=== PATIENT | male | born 1960 | race African-American/Black ===

== ENCOUNTER 2017-09-22 10:43 | Inpatient (IN) | payer MEDICAID, OTHER ==
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
[2017-09-22 13:17] LABS: Amphetamine Screen,Urine Not Detected (NotDetected); Barbiturate Screen,Urine Not Detected (NotDetected); Benzodiazepines Screen,Urine Not Detected (NotDetected); Cocaine Screen,Urine Not Detected (NotDetected); Methadone Screen, Urine Not Detected (NotDetected); Opiate Screen,Urine Not Detected (NotDetected); Oxycodone Screen, Urine Not Detected (NotDetected); Phencyclidine Screen,Urine Not Detected (NotDetected); Tricyclic Antidepressant,Urine Not Detected (NotDetected); Urn Cannabinoid Scrn Not Detected (NotDetected)
[2017-09-22] MEDS ORDERED: MAGNESIUM HYDROXIDE 2,400 MG/10 ML CUP PO PRN (13:59)
[2017-09-22] MEDS ORDERED: ACETAMINOPHEN TAB 325 MG TAB PO PRN (13:59)
[2017-09-22] MEDS ORDERED: MAG HYDROX/AL HYDROX/SIMETH 30 ML CUP PO PRN (13:59)
[2017-09-22] MEDS ORDERED: ZIPRASIDONE 20 MG VIAL IM PRN (13:59)
[2017-09-22 14:08] LABS: Appearance,Urine Clear (Clear); Bilirubin,Urine Negative (Negative); Blood,Urine Negative (Negative); Color,Urine Yellow; Glucose,Urine (UA) Negative (Negative); Ketones,Urine Negative (Negative); Leukocyte Esterase,Urine Negative (Negative); Nitrite,Urine Negative (Negative); PH, Urine 5.5 (5.0-8.0); Protein,Urine Trace (Negative); Urobilinogen,Urine <2.0 mg/dL (<2.0)
[2017-09-22 14:54] VITALS: BMI 28.7
[2017-09-22] MEDS: NICOTINE 21MG/24HR PATCH TRANSDERM SCH (15:30)
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
--- NOTE | 2017-09-22 17:20 | P.CONS ---
History of Present Illness - Reason for Consult Medical clearance - History of Present Illness Patient is a very 57 pleasant gentleman is admitted to psychiatric floor for his suicidal thoughts. Patient is clinically doing well his only issues being some claudication pain upon questioning patient has loss of hair in the right leg and the couple pressure ulcers in both the foot. Patient has crowding of all his toes in bilateral fourth leading to some pressure ulcers which are presently not infected. Patient denied any fever chills nausea vomiting patient is a smoker smokes about half pack per day Review of Systems REVIEW OF SYSTEMS: CONSTITUTIONAL: No fever, no malaise, no fatigue. HEENT: No recent visual problems or hearing problems. Denied any sore throat. CARDIOVASCULAR: No chest pain, orthopnea, PND, no palpitations, no syncope. PULMONARY: No shortness of breath, no cough, no hemoptysis. GASTROINTESTINAL: No diarrhea, no nausea, no vomiting, no abdominal pain. Normoactive bowel sounds. NEUROLOGICAL: No headaches, no weakness, no numbness. HEMATOLOGICAL: Denies any bleeding or petechiae. GENITOURINARY: Denies any burning micturition, frequency, or urgency. MUSCULOSKELETAL/RHEUMATOLOGICAL: Denies any joint pain, swelling, or any muscle pain. ENDOCRINE: Denies any polyuria or polydipsia. The rest of the 14-point review of systems is negative. Past Medical History Past Medical History: Hyperlipidemia, Hypertension History of Any Multi-Drug Resistant Organisms: None Reported Past Surgical History: Hernia Repair Smoking Status: Current every day smoker Medications and Allergies Home Medications Medication Instructions Recorded Confirmed Type No Known Home Medications [No 09/22/17 09/22/17 History Known Home Medications] Allergies Allergy/AdvReac Type Severity Reaction Status Date / Time No Known Allergies Allergy Verified 09/22/17 11:24 Physical Exam Vitals: Vital Signs Temp Pulse Pulse Resp BP BP Pulse Ox 09/22/17 14:36 77 20 147/94 09/22/17 14:07 98.6 F 66 18 148/78 98 09/22/17 11:00 98.4 F 65 16 144/96 98 Intake and Output 09/22/17 09/22/17 09/22/17 06:59 14:59 22:59 Other: Weight 95.963 kg PHYSICAL EXAMINATION: GENERAL: The patient is alert and oriented x3, not in any acute distress. Well developed, well nourished. HEENT: Pupils are round and equally reacting to light. EOMI. No scleral icterus. No conjunctival pallor. Normocephalic, atraumatic. No pharyngeal erythema. No thyromegaly. CARDIOVASCULAR: S1 and S2 present. No murmurs, rubs, or gallops. PULMONARY: Chest is clear to auscultation, no wheezing or crackles. ABDOMEN: Soft, nontender, nondistended, normoactive bowel sounds. No palpable organomegaly. MUSCULOSKELETAL: No joint swelling or deformity. EXTREMITIES: No cyanosis, clubbing, or pedal edema. NEUROLOGICAL: Gross neurological examination did not reveal any focal deficits. SKIN: Press fresher lesions on the plantar aspect of both the foot laterally on the plantar aspect around the fourth and fifth metatarsal areas in both foot area doesn't appear to be infected patient has crowding of fingers loss of hair in the right leg Results Labs: Abnormal Lab Results - Last 24 Hours (Table) 09/22/17 Range/Units 12:17 Urine Protein Trace H (Negative) Assessment and Plan Plan: -Possible peripheral vascular disease patient will be started on Plavix and a statin and a lipid panel will be obtained nicotine cessation counseling was provided.--Bilateral plantar pressure ulcers which doesn't appear to be infected patient is to follow with the creatinine as an outpatient. I recommended soft gauze under the foot via before wearing boots to reduce the pressure on the ulcerated area. -Nicotine abuse: Counseling was provided -Suicidal ideation: Management as per primary service
[2017-09-22] MEDS: OXcarbazepine 300 MG TAB PO SCH (20:25)
[2017-09-22] MEDS ORDERED: ATORVASTATIN 20 MG TAB PO SCH (21:00)
[2017-09-22] MEDS ORDERED: QUEtiapine 100 MG TAB PO SCH (21:00)
[2017-09-23] MEDS ORDERED: CLOPIDOGREL 75 MG TAB PO SCH (09:00)
[2017-09-23 09:42] LABS: Basophils % (A) 0 %; Eosinophils # (A) 0.6 k/uL (0-0.7); Eosinophils % (A) 7 %; HCT 45.6 % (39.0-53.0); HGB 15.2 gm/dL (13.0-17.5); Lymphocytes # (A) 2.3 k/uL (1.0-4.8); Lymphocytes % (A) 30 %; MCH 28.6 pg (25.0-35.0); MCHC 33.4 g/dL (31.0-37.0); MCV 85.8 fL (80.0-100.0); Mean Platelet Volume 7.7; Monocytes # (A) 0.3 k/uL (0-1.0); Monocytes % (A) 4 %; Neutrophils # (A) 4.5 k/uL (1.3-7.7); Neutrophils % (A) 58 %; Platelet Count 287 k/uL (150-450); RBC 5.32 m/uL (4.30-5.90); RDW 12.4 % (11.5-15.5); WBC 7.8 k/uL (3.8-10.6)
[2017-09-23 09:50] LABS: Albumin 4.3 g/dL (3.5-5.0); Calcium 10.1 mg/dL (8.4-10.2); Total Bilirubin 0.7 mg/dL (0.2-1.3); Total Protein 7.2 g/dL (6.3-8.2)
[2017-09-23] MEDS: NICOTINE 21MG/24HR PATCH TRANSDERM SCH (10:22)
[2017-09-23] MEDS: OXcarbazepine 300 MG TAB PO SCH ×2 (10:22→21:00)
--- NOTE | 2017-09-23 11:26 | P.PN ---
Progress Note - Text Progress Note Date: 09/23/17 Patient was seen for follow-up examination. He has been taking Seroquel and Trileptal without any adverse effect. He said he he did not get too sleepy last night but he slept enough. He agreed to increase the dose of Seroquel to 200 mg at at bedtime tonight. He has been going to the groups and socializing with patient's staff and flirts with women. Has not been violent or abusive. He was started on Plavix and Lipitor by the doctor who had given him physical examination. His LDL is only 124 which is borderline high and patient does not have any history of stroke, AK, PE or DVT. He has some mild varicose veins of the legs. He has deformed toes, bunions, calluses/corns of feet. These would require care by a advertising sales assistant and use of anticoagulants can be dangerous if he is in an accident. Since I do not see any valid indication for the use of Plavix, I will discontinue it. Since patient agreed to go on a diet and monitor his lipid level and will discontinue Lipitor also. This is a black ambulatory male with adequate hygiene. He is cooperative. He still gets hyperactive. His speech is spontaneous pressured with flight of ideas. But he is not as loud as he was and is able to focus on topic better today. His mood is cheerful and affect is increased in intensity. He denies hallucinations. He continues to report of suicide and homicide thoughts but he does not have any plans. He continues to be grandiose. He is well oriented with adequate memory. His insight and judgment seem to be improving. Plan: Discontinue Plavix and Lipitor, change Seroquel to 200 mg at bedtime and continue Trileptal, groups and other therapies.
[2017-09-23] MEDS: QUEtiapine 200 MG TAB PO SCH (21:00)
[2017-09-24] MEDS: NICOTINE 21MG/24HR PATCH TRANSDERM SCH (08:32)
[2017-09-24] MEDS: OXcarbazepine 300 MG TAB PO SCH ×2 (08:34→20:12)
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
[2017-09-24] MEDS: QUEtiapine 200 MG TAB PO SCH (20:12)
[2017-09-25] MEDS: NICOTINE 21MG/24HR PATCH TRANSDERM SCH (08:58)
[2017-09-25] MEDS: OXcarbazepine 300 MG TAB PO SCH ×2 (08:58→21:43)
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
[2017-09-25] MEDS: QUEtiapine 200 MG TAB PO SCH (21:43)
[2017-09-26 06:55] VITALS: BP 134/71; PULSE 64; RESP 16; TEMP 98
[2017-09-26] MEDS: NICOTINE 21MG/24HR PATCH TRANSDERM SCH (09:15)
[2017-09-26] MEDS: OXcarbazepine 300 MG TAB PO SCH (09:15)
--- NOTE | 2017-09-26 09:24 | P.DS ---
Providers Date of admission: 09/22/17 13:58 Expected date of discharge: 09/26/17 Attending physician: Ton Amador Consults: 09/22/17 13:59 Consult Physician Routine Consulting Provider: Andrews Knott Consult Reason/Comments: follow up H & P Do you want consulting provider notified?: Yes Primary care physician: [facility] Course: Patient had his psychiatric evaluation, physical examination and psychosocial evaluation. After psychiatric examination he was started on Seroquel 100 mg at bedtime and Trileptal 300 mg twice a day for mood stabilization. He tolerated these medicines well without any adverse effects. Next day his Seroquel was increased to 200 mg at bedtime. He tolerated this dose well without adverse effects. His sleep started to get better and he slept well on Tuesday and Tuesday. He was also able to focus better, learn better coping skills throughout attending groups and has been able to come up with mature coping skills to handle his frustration. In view of all these it was agreed to discharge him. Patient was seen by the physician who provided him with physical examination who had started him on Plavix and Lipitor. This where discontinued since he did not have any AL, strokes, DVT or pulmonary embolism etc. in the past. His Lipitor was canceled since his LDL was only borderline high and he had not tried low-fat diet for which he agreed and go back on lipid- lowering drugs if his lipids are still high after going on diet for about 3 months. Condition on discharge: This is a tall ambulatory black male with good hygiene. He does not show any psychomotor agitation or retardation. His speech is spontaneous relevant and goal-directed. But he tends to be over inclusive. His mood is cheerful and affect is appropriate. He denies hallucinations delusional thinking suicidal and homicidal ideas. He said he wants to return to work on Tuesday the , talk to the [employer] people or other persons in employment area about him being attacked at work. He is well oriented with good memory concentration general fund of knowledge etc. His insight and judgment have improved quite a bit. Diagnosis on discharge: Bipolar 1 disorder most recent episode manic with psychotic features F 31.2. Antisocial personality disorder F 60.2. NKDA Hammertoe deformities of toes, several calluses and corns on the sole of feet. Patient was advised and agreed to take his medications as prescribed, not to drink alcohol or use drugs, to learn better coping skills through therapy, not to drive or operate missionary if he feels sleepy, to call his psychiatrist or therapist if he gets any thoughts of hurting himself or others and if he cannot get hold of them to go to nearest ER. Plan - Discharge Summary New Discharge Prescriptions: New OXcarbazepine [Trileptal] 300 mg PO BID 30 Days #60 tab QUEtiapine [SEROquel] 200 mg PO HS 30 Days #30 tab Discharge Medication List OXcarbazepine [Trileptal] 300 mg PO BID 30 Days #60 tab 09/26/17 [Rx] QUEtiapine [SEROquel] 200 mg PO HS 30 Days #30 tab 09/26/17 [Rx] Follow up Appointment(s)/Referral(s): Tone Casillas MD [STAFF PHYSICIAN] - 1 Week
== END 2017-09-26 14:29 | disposition home or self-care (01) | DRG 885 ==
LOC: EC 10:43 → 3MHU 13:58
PROVIDERS: ADMIT Psychiatry & Neurology Psychiatry; ATTEND Psychiatry & Neurology Psychiatry
DX: F31.2 Bipolar disorder, current episode manic severe with psychotic features (principal); R45.850 Homicidal ideations; R45.851 Suicidal ideations; E78.5 Hyperlipidemia, unspecified; F60.2 Antisocial personality disorder; I10 Essential (primary) hypertension; F17.200 Nicotine dependence, unspecified, uncomplicated; I70.245 Atherosclerosis of native arteries of left leg with ulceration of other part of foot; I70.235 Atherosclerosis of native arteries of right leg with ulceration of other part of foot; I83.90 Asymptomatic varicose veins of unspecified lower extremity; L84 Corns and callosities; M20.40 Other hammer toe(s) (acquired), unspecified foot; M21.619 Bunion of unspecified foot; Z80.9 Family history of malignant neoplasm, unspecified; Z81.3 Family history of other psychoactive substance abuse and dependence
CPT/HCPCS: 80053; 80061; 80306; 81003; 82075; 84439; 84443; 85025; 99285

== ENCOUNTER → 2018-03-15 | Day surgery (SDC) | payer OTHER ==
[2018-03-14 08:52] VITALS: BMI 32.1
[~2018-03-15] MED LIST: LIDOCAINE 1% INJ 10MG/ML (20 ML MDV) ONE; MIDAZOLAM 2 MG/2 ML VIAL IVP ONE; MIDAZOLAM 2 MG/2 ML VIAL ONE; PROPOFOL 10 MG/ML 20 ML VIAL IV ONE; SODIUM CHLORIDE 0.9% 250 ML IV ONE; fentaNYL (PF) 50 MCG/ML 2 ML AMP ONE
[2018-03-15 11:48] VITALS: TEMP 98
[2018-03-15] MEDS: BENZOCAINE SPRAY 1 CAN MUCOUS MEM ONE ×2 (13:05→13:11)
[2018-03-15] MEDS: MIDAZOLAM 2 MG/2 ML VIAL IVP ONE ×2 (13:11→13:12)
[2018-03-15] MEDS: fentaNYL (PF) 50 MCG/ML 2 ML AMP IVP ONE ×2 (13:13→13:16)
[2018-03-15 14:13] VITALS: RESP 16
--- NOTE | 2018-03-15 15:12 | ECHOT ---
TRANSESOPHAGEAL ECHOCARDIOGRAM DATE OF SERVICE: March 15, 2018 PERFORMING PHYSICIAN: Arian Orantes MD, motor vehicle compliance analyst. PROCEDURE PERFORMED: Transesophageal echocardiogram. INDICATION: This is a pleasant 58-year-old gentleman with hypertension and dyslipidemia who was admitted recently to the hospital with a stroke. The transesophageal echocardiogram is to rule out any cardiac source of embolization. COMPLICATION: None. SEDATION: Deep sedation was performed using propofol with PLATE GRAINER in the room. PROCEDURE DESCRIPTION: After obtaining an informed consent, the patient was brought to the transesophageal echocardiogram suite. The pulse oximetry and heart rate monitors were attached to the patient. The patient was turned into left lateral position. The throat was sprayed using lidocaine. I attempted intubating the patient after I gave 4 mg of Versed and 50 mcg of fentanyl, but the patient keeps gagging and I had to withdraw the probe out. Because of that, I called for general anesthesia. After that, the probe was advanced to the mid esophagus where 2D echocardiogram images as well as color Doppler images of various cardiac structure were obtained. Particular attention was made to the left atrial appendage. Particular attention also was made to the interatrial septum. The procedure was completed without any complication. FINDINGS: The left ventricular dimension and systolic function appeared to be within normal limits. The ejection fraction appeared to be around 60%. The right ventricle is of normal size and function. The left atrium and right atrium dimension appear to be within normal limits. Platelet left atrial appendage appeared to be free from any thrombus. The interatrial septum appeared to be hyperdynamic with evidence of patent bond ovale and [id number] shunt was identified on multiple contrast study. The aortic valve is trileaflet valve without stenosis or regurgitation. The mitral valve seems to be mildly thickened with mild MR. Normal tricuspid valve and pulmonic valve. CONCLUSION: 1. 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 2. Intact left atrial appendage without any evidence of thrombus. 3. Normal left ventricular dimension and systolic function. 4. Normal cardiac chamber sizes. 5. Normal intracardiac valves. 6. No evidence of pericardial effusion. 7. Normal aortic root dimension. MMODL / IJN: [id number] /
[2018-03-15 16:10] VITALS: PULSE 70
[2018-03-15 16:15] VITALS: BP 156/90
== END ==
LOC: CATHCVL 11:22
PROVIDERS: ATTEND Internal Medicine Interventional Cardiology
DX: I69.328 Other speech and language deficits following cerebral infarction (principal); E78.5 Hyperlipidemia, unspecified; Z82.49 Family history of ischemic heart disease and other diseases of the circulatory system; F17.210 Nicotine dependence, cigarettes, uncomplicated; I49.3 Ventricular premature depolarization; Z79.02 Long term (current) use of antithrombotics/antiplatelets; Z79.82 Long term (current) use of aspirin; Z79.899 Other long term (current) drug therapy; I10 Essential (primary) hypertension
CPT/HCPCS: 93312; 93320; 93325; J2250; J2001; J3010; J2704

== ENCOUNTER 2018-06-15 20:30 | Inpatient (IN) | payer MEDICAID, OTHER ==
--- NOTE | 2018-06-15 22:52 | ED ---
Psych HPI - General Chief Complaint: Psychiatric Symptoms Stated Complaint: homicidal Time Seen by Provider: 06/15/18 21:04 Source: patient, RN notes reviewed Mode of arrival: ambulatory - History of Present Illness Initial Comments: This is a 58-year-old male with a history of bipolar disorder who presents with complaints of feeling depressed and suicidal he also stated he wanted to hurt somebody earlier he does have a history of a remote stroke he's been out of work for a while and has not been able to his bills apparently he and his have gotten into an argument he is allowed home at this time she's been homeless for the past several days. He did spend 2 days of the local mission. He had thoughts of running out in front of a car or jumping off a bridge [place]. No other complaints at this time no drugs or alcohol reported. MD Complaint: suicidal ideation, feels depressed - Related Data Home Medications Medication Instructions Recorded Confirmed Aspirin 325 mg PO DAILY 03/14/18 06/15/18 Clopidogrel [Plavix] 75 mg PO DAILY 03/14/18 06/15/18 Famotidine [Pepcid] 20 mg PO DAILY 03/14/18 06/15/18 Atorvastatin [Lipitor] 20 mg PO HS 06/15/18 06/15/18 Nicotine 14Mg/24Hr Patch [Habitrol 1 patch TRANSDERM DAILY 06/15/18 06/15/18 14Mg/24Hr Patch] amLODIPine [Norvasc] 10 mg PO DAILY 06/15/18 06/15/18 Previous Rx's Medication Instructions Recorded OXcarbazepine [Trileptal] 300 mg PO BID 30 Days #60 tab 09/26/17 QUEtiapine [SEROquel] 200 mg PO HS 30 Days #30 tab 09/26/17 Allergies Allergy/AdvReac Type Severity Reaction Status Date / Time No Known Allergies Allergy Verified 06/16/18 06:25 Review of Systems ROS Statement: Those systems with pertinent positive or pertinent negative responses have been documented in the HPI. ROS Other: All systems not noted in ROS Statement are negative. Past Medical History Past Medical History: CVA/TIA, Hyperlipidemia, Hypertension Additional Past Medical History / Comment(s): STROKE 01/04/18, CHRONIC BRONCHITIS , History of Any Multi-Drug Resistant Organisms: None Reported Past Surgical History: Hernia Repair Past Anesthesia/Blood Transfusion Reactions: No Reported Reaction Past Psychological History: Anxiety, Bipolar, Depression Smoking Status: Current every day smoker - Past Family History Father Family Medical History: Cancer General Exam - General Exam Comments Initial Comments: This is a well-developed well-nourished awake alert oriented 3 male Limitations: no limitations General appearance: alert, in no apparent distress Head exam: Present: atraumatic, normocephalic, normal inspection Eye exam: Present: normal appearance, PERRL, EOMI. Absent: scleral icterus, conjunctival injection, periorbital swelling ENT exam: Present: normal exam, mucous membranes moist Neck exam: Present: normal inspection. Absent: tenderness, meningismus, lymphadenopathy Respiratory exam: Present: normal lung sounds bilaterally. Absent: respiratory distress, wheezes, rales, rhonchi, stridor Cardiovascular Exam: Present: regular rate, normal rhythm, normal heart sounds. Absent: systolic murmur, diastolic murmur, rubs, gallop, clicks GI/Abdominal exam: Present: soft, normal bowel sounds. Absent: distended, tenderness, guarding, rebound, rigid Extremities exam: Present: normal inspection, full ROM, normal capillary refill. Absent: tenderness, pedal edema, joint swelling, calf tenderness Back exam: Present: normal inspection Neurological exam: Present: alert, oriented X3, CN II-XII intact Psychiatric exam: Present: depressed, suicidal ideation Skin exam: Present: warm, dry, intact, normal color. Absent: rash Course Vital Signs 06/15/18 06/16/18 20:44 05:13 Temperature 99.1 F Pulse Rate 82 69 Respiratory 16 16 Rate Blood Pressure 159/99 141/83 O2 Sat by Pulse 97 97 Oximetry - Reevaluation(s) Reevaluation #1: 06/16/18 00:13 Psychiatric evaluation is pending patient's care will be endorsed to Dr. Maciel at our shift change Medical Decision Making - Lab Data Result diagrams: 06/16/18 08:50 06/16/18 08:50 Lab Results 06/15/18 Range/Units 23:10 Urine Opiates Screen Not Detected (NotDetected) Ur Oxycodone Screen Not Detected (NotDetected) Urine Methadone Screen Not Detected (NotDetected) Ur Propoxyphene Screen Not Detected (NotDetected) Ur Barbiturates Screen Not Detected (NotDetected) U Tricyclic Antidepress Not Detected (NotDetected) Ur Phencyclidine Scrn Not Detected (NotDetected) Ur Amphetamines Screen Not Detected (NotDetected) U Methamphetamines Scrn Not Detected (NotDetected) U Benzodiazepines Scrn Not Detected (NotDetected) Urine Cocaine Screen Not Detected (NotDetected) U Marijuana (THC) Screen Not Detected (NotDetected) Disposition Clinical Impression: Depression, Suicidal ideation Disposition: TRANSFER TO PSYCH HOSP/UNIT
[2018-06-15 23:49] LABS: Amphetamine Screen,Urine Not Detected (NotDetected); Barbiturate Screen,Urine Not Detected (NotDetected); Benzodiazepines Screen,Urine Not Detected (NotDetected); Cocaine Screen,Urine Not Detected (NotDetected); Methadone Screen, Urine Not Detected (NotDetected); Opiate Screen,Urine Not Detected (NotDetected); Oxycodone Screen, Urine Not Detected (NotDetected); Phencyclidine Screen,Urine Not Detected (NotDetected); Tricyclic Antidepressant,Urine Not Detected (NotDetected); Urn Cannabinoid Scrn Not Detected (NotDetected)
[2018-06-16] MEDS ORDERED: LORazepam 1 MG TAB PO PRN (05:55)
[2018-06-16] MEDS ORDERED: MAGNESIUM HYDROXIDE 2,400 MG/10 ML CUP PO PRN (05:55)
[2018-06-16] MEDS ORDERED: ZIPRASIDONE 20 MG VIAL IM PRN (05:55)
[2018-06-16] MEDS ORDERED: MAG HYDROX/AL HYDROX/SIMETH 30 ML CUP PO PRN (05:55)
[2018-06-16] MEDS ORDERED: ACETAMINOPHEN TAB 325 MG TAB PO PRN (05:55)
[2018-06-16 09:11] LABS: Basophils # (A) 0.1 k/uL (0-0.2); Basophils % (A) 1 %; Eosinophils # (A) 0.4 k/uL (0-0.7); Eosinophils % (A) 5 %; HCT 45.5 % (39.0-53.0); HGB 15.1 gm/dL (13.0-17.5); Lymphocytes # (A) 2.4 k/uL (1.0-4.8); Lymphocytes % (A) 34 %; MCH 29.4 pg (25.0-35.0); MCHC 33.2 g/dL (31.0-37.0); MCV 88.5 fL (80.0-100.0); Monocytes # (A) 0.5 k/uL (0-1.0); Monocytes % (A) 7 %; Neutrophils # (A) 3.6 k/uL (1.3-7.7); Neutrophils % (A) 50 %; Platelet Count 217 k/uL (150-450); RBC 5.14 m/uL (4.30-5.90); RDW 12.9 % (11.5-15.5); WBC 7.3 k/uL (3.8-10.6)
[2018-06-16 09:21] LABS: Albumin 3.9 g/dL (3.5-5.0); Bilirubin, Delta 0.1 mg/dL (0.0-0.2); Bilirubin,Unconjugated 0.6 mg/dL (0.0-1.1); Calcium 9.7 mg/dL (8.4-10.2); Potassium 4.2 mmol/L (3.5-5.1); Total Bilirubin 0.7 mg/dL (0.2-1.3); Total Protein 6.7 g/dL (6.3-8.2)
--- NOTE | 2018-06-16 09:30 | P.HP ---
Psychiatric H&P - . History & Physical: Allergies Allergy/AdvReac Type Severity Reaction Status Date / Time No Known Allergies Allergy Verified 06/16/18 06:25 Vital Signs Temp 98.1 F 06/16/18 06:37 Pulse 68 06/16/18 06:37 Resp 20 06/16/18 06:37 BP 154/87 06/16/18 06:37 Pulse Ox 97 06/16/18 05:13 Intake & Output 06/15/18 06/16/18 06/16/18 18:59 06:59 18:59 Weight 100.698 kg Laboratory Last Values Urine Opiates Screen Not Detected (NotDetected) 06/15/18 23:10 Ur Oxycodone Screen Not Detected (NotDetected) 06/15/18 23:10 Urine Methadone Screen Not Detected (NotDetected) 06/15/18 23:10 Ur Propoxyphene Screen Not Detected (NotDetected) 06/15/18 23:10 Ur Barbiturates Screen Not Detected (NotDetected) 06/15/18 23:10 U Tricyclic Antidepress Not Detected (NotDetected) 06/15/18 23:10 Ur Phencyclidine Scrn Not Detected (NotDetected) 06/15/18 23:10 Ur Amphetamines Screen Not Detected (NotDetected) 06/15/18 23:10 U Methamphetamines Scrn Not Detected (NotDetected) 06/15/18 23:10 U Benzodiazepines Scrn Not Detected (NotDetected) 06/15/18 23:10 Urine Cocaine Screen Not Detected (NotDetected) 06/15/18 23:10 U Marijuana (THC) Screen Not Detected (NotDetected) 06/15/18 23:10 06/16/18 09:19 IDENTIFYING DATA: This patient is a 58-year-old -Tog[place] male who was admitted to the mental health unit through the emergency room with the report of suicidal ideation. HPI: The patient states that his life has changed ever since he had his stroke in December. He reports that he has a loss of independence and a loss of income. He states that his girlfriend has attempted to file a PPO against him and he is not able to return home. He has been residing with friends or in the alf. Due to all of the stressors he has become overwhelmed and had thoughts of jumping in front of a car or jumping in the river as a means of committing suicide. He reports his mood is "terrible" and feels depressed and hopeless. He endorses a generalized sense of anger he states he has homicidal thoughts but reports having no specific victim in mind. He states he has not slept in 4- 5 days his energy is low appetite has been poor. He endorses a history of manic episodes and states he was manic during his last admission here in September. He states he will go through times where he has less sleep and increased energy racing thoughts and pressured speech etc. He is reporting no auditory or visual hallucinations he is endorsing no specific delusions he indicates that he feels safe here. He has anxiety symptoms related to his current stressors. PAST PSYCHIATRIC HISTORY: This is reportedly his second inpatient psychiatric hospitalization the first was in September of this year under the care of Dr. Amador. He was placed on Trileptal 300 mg twice daily Seroquel 200 mg at bedtime. He states he has been off his medication for an extended period of time. He did not follow-up with mental health services upon discharge. He believes he has worked with a therapist at [facility] [place] in the past. He endorses no history of suicide attempts. PMH: History of stroke in December where he experienced an expressive aphasia he noted no paresis/paralysis he reports no other medical comorbidities although he may have hyperlipidemia and hypertension ALLERGIES: NO KNOWN DRUG ALLERGIES MEDICATIONS: Norvasc, Lipitor, Plavix, aspirin CHEMICAL DEPENDENCY HISTORY: He has a long history of alcohol use disorder and cocaine use disorder, he states on Tuesday or Tuesday he used alcohol and had $ 40 worth of crack he has been in residential treatment at least 4 times in the past FAMILY PSYCHIATRIC HISTORY: None reported, no history of suicides in the family FAMILY CHEMICAL DEPENDENCY HISTORY: Unknown SOCIAL HISTORY: The patient is 68 years old he finds himself currently homeless. He has a girlfriend of 3 years but states the relationship is "terrible right now". He states his girlfriend filed a petition for a PPO against him and it was denied and there has been a request for hearing. He states he was not aggressive towards her and feels that this is a false allegation. Prior to his stroke the patient was employed as a vendor representatives and had been at that job for approximately 2-1/2 years. He went as far as 10th grade in school and then later earned a GED. He was in the [employer] reserve for a brief period of time and was discharged under general conditions. He has 3 children. No reported abuse history, in terms of legal history he was arrested for domestic violence 10 years ago. MENTAL STATUS EXAM: The patient is a 58-year-old -[place] male appearing his stated age. He is dressed in hospital gowns. He has a white fraire he is wearing eyeglasses. Hygiene and grooming are impaired there is a foul odor. He reports his mood as "terrible" affect is congruent to reported mood. He reports ongoing hopelessness thinking and suicidal ideation. He endorses generalized feelings of anger and states he has homicidal thoughts but he verbalizes no intended victim. He does have some difficulty processing as a have to repeat questions to him several times. He will appear mildly irritable with continued questioning but he demonstrates no verbal or physical aggressiveness. He reports no auditory or visual hallucinations he endorses no specific delusions. There is no observed evidence of psychosis. Thought process can be circumstantial he demonstrates no tangential thinking loose associations or flight of ideas. He does not appear hypomanic or manic at this time. Insight and judgment limited. He is oriented to person place and date. He is able to register 3 words after delay of approximately 2-3 minutes he was able to recall 2 of the words spontaneously the third word he required a verbal cue and he had one intrusion. He was able to name 5 major cities in the [place] he was able to provide abstract answers to similarity questions. He was able to name 3 objects. Again he was frustrated in having to answer these questions. STRENGTHS/WEAKNESSES: Strengths: Willingness to seek voluntary help weaknesses: Noncompliance with medication and outpatient mental health follow-up, discord with girlfriend, noted limitations due to stroke INTELLECTUAL FUNCTIONING: Average IMPRESSIONS: [] 1. Bipolar 1 disorder most recent depressed severe without psychosis, alcohol use disorder, cocaine use disorder 2. Reported history of cerebrovascular accident 3. Discord with girlfriend who has filed PPO PLAN: The patient has been admitted to the mental health unit voluntarily. We reviewed his presenting symptoms and treatment options. He had previously been on Trileptal and Seroquel and he felt those medications were beneficial for mood stabilization and sleep and he is requesting to go back on those medications. The Trileptal will be started at 150 mg twice daily and we will likely titrate that further. The Seroquel will be started at 100 mg at bedtime and we will titrate that further as needed as well. He will be seen by internal medicine for routine history and physical exam. Social work will meet with him to complete a psychosocial assessment. We will monitor him for safety. We will involve any support he has in his treatment and discharge planning as he will allow. Vital signs reviewed, available laboratory data reviewed.
[2018-06-16] MEDS: NICOTINE 14MG/24HR PATCH TRANSDERM SCH (09:39)
[2018-06-16] MEDS: OXcarbazepine 150 MG TAB PO SCH ×2 (09:40→21:16)
[2018-06-16] MEDS: ASPIRIN 325 MG TAB PO SCH (09:40)
[2018-06-16] MEDS: CLOPIDOGREL 75 MG TAB PO SCH (09:40)
[2018-06-16] MEDS: amLODIPine 10 MG TAB PO SCH (09:45)
[2018-06-16] MEDS ORDERED: cloNIDine HCL 0.2 MG TAB PO STA (14:28)
[2018-06-16] MEDS ORDERED: KETOROLAC 30 MG/ML 1 ML VIAL IVP STA (14:44)
[2018-06-16] MEDS ORDERED: KETOROLAC 30 MG/ML 1 ML VIAL IM STA (14:48)
--- NOTE | 2018-06-16 15:04 | P.HPMEDMHU ---
History of Present Illness H&P Date: 06/16/18 Chief Complaint: Consult for him U HPI The patient is a 58-year-old -[place] male with a past medical history of CVA This past December with resultant episodes of slurred speech/stuttering and chronic headaches who is currently admitted to mental health unit after he presented to the ER with complaints of suicidal ideation with plans to either stepped out into traffic or to jump into the duque. The patient has been having increasing episodes of depression since December when he had a stroke. The patient has been having ongoing headaches and possibly migraines, he reports a recent MRI within the last 2 months and that he has a pituitary abnormality that is being followed in the outpatient setting by his neurologist Dr. Lee. The patient denies any chest pain today, denies shortness of breath, denies any slurred speech but does report a frontal headache, he denies any blurry vision or any focal weakness. Patient reports that his blood pressure has been elevated recently as he has not taken any of his medications in the last several days as he is currently homeless and was recently kicked out by his partner after an argument. Review of records indicates the patient recently underwent a BRYON and workup from cardiology Dr. Orantes that showed a PFO, also with plans to have an outpatient Lexiscan stress test In the ER he had a comprehensive workup UDS was negative patient was noted to be hypertensive blood pressures 140 - 160 systolically. He was restarted on his antihypertensive regimen with Norvasc earlier today. Review of Systems Pertinent positives per HPI all other review of systems otherwise negative Past Medical History Past Medical History: CVA/TIA, Hyperlipidemia, Hypertension Additional Past Medical History / Comment(s): STROKE 01/04/18, CHRONIC BRONCHITIS , History of Any Multi-Drug Resistant Organisms: None Reported Past Surgical History: Hernia Repair Past Anesthesia/Blood Transfusion Reactions: No Reported Reaction Smoking Status: Current every day smoker - Past Family History Father Family Medical History: Cancer Medications and Allergies Home Medications Medication Instructions Recorded Confirmed Type OXcarbazepine [Trileptal] 300 mg PO BID 30 Days #60 tab 09/26/17 06/15/18 Rx QUEtiapine [SEROquel] 200 mg PO HS 30 Days #30 tab 09/26/17 06/15/18 Rx Aspirin 325 mg PO DAILY 03/14/18 06/15/18 History Clopidogrel [Plavix] 75 mg PO DAILY 03/14/18 06/15/18 History Famotidine [Pepcid] 20 mg PO DAILY 03/14/18 06/15/18 History Atorvastatin [Lipitor] 20 mg PO HS 06/15/18 06/15/18 History Nicotine 14Mg/24Hr Patch [Habitrol 1 patch TRANSDERM DAILY 06/15/18 06/15/18 History 14Mg/24Hr Patch] amLODIPine [Norvasc] 10 mg PO DAILY 06/15/18 06/15/18 History Allergies Allergy/AdvReac Type Severity Reaction Status Date / Time No Known Allergies Allergy Verified 06/16/18 06:25 Physical Exam Vitals: Vital Signs Temp Pulse Pulse Resp BP BP BP 06/16/18 13:41 73 160/88 06/16/18 06:37 98.1 F 68 20 154/87 06/16/18 05:13 69 16 141/83 06/15/18 20:44 99.1 F 82 16 159/99 Pulse Ox 06/16/18 13:41 06/16/18 06:37 06/16/18 05:13 97 06/15/18 20:44 97 Intake and Output 06/15/18 06/16/18 06/16/18 22:59 06:59 14:59 Other: Weight 99.79 kg 100.698 kg Constitutional: No acute distress, conversant, pleasant Eyes: Anicteric sclerae, moist conjunctiva, no lid-lag, PERRLA ENMT: NC/AT,Oropharynx clear, no erythema, exudates Neck:Supple, FROM, no masses, or JVD, No carotid bruits; No thyromegaly Lungs: Clear to auscultation, Clear to percussion, Normal respiratory effort, no accessory muscle use Cardiovascular: Heart regular in rate and rhythm, No murmurs, gallops, or rubs no peripheral edema Abdominal: Soft Nontender, nom distended, no guarding, no rebound or rigidity, Normoactive bowel sounds No hepatomegaly, No splenomegaly, No palpable mass No abdominal wall hernia noted Skin: Normal temperature, tone, texture, turgor, No induration No subcutaneous nodules, No rash, lesions, No ulcers Extremities:No digital cyanosis No clubbing, Pedal pulses intact and symmetrical Radial pulses intact and symmetrical Normal gait and station, No calf tenderness Psychiatric: Alert and oriented to person, place and time, depressed mood, thoughts intact with locking noted, denies auditory or visual hallucinations sidle ideation as noted Neuro: Muscles Strength 5/5 in all 4 extremities, Sensation to light touch grossly present throughout, Cranial nerves II-XII grossly intact. No focal sensory deficits Cranial Nerve Examination - Cranial Nerves Cranial Nerve II- Optic: Intact Cranial Nerve III- Oculomotor: Intact Cranial Nerve IV- Trochlear: Intact Cranial Nerve V- Trigeminal: Intact Cranial Nerve - Abducens: Intact Cranial Nerve VII- Facial: Intact Cranial Nerve VIII- Auditory: Intact Cranial Nerve IX- Glossopharyngeal: Intact Cranial Nerve X- Vagus: Intact Cranial Nerve XI- Accessory: Intact Cranial Nerve XII- Hypoglossal: Intact Results CBC & Chem 7: 06/16/18 08:50 06/16/18 08:50 Labs: Abnormal Lab Results - Last 24 Hours (Table) 06/16/18 Range/Units 08:50 Glucose 123 H (74-99) mg/dL Triglycerides 159 H (<150) mg/dL Cholesterol 243 H (<200) mg/dL LDL Cholesterol, Calc 179 H (0-99) mg/dL HDL Cholesterol 32 L (40-60) mg/dL Assessment and Plan (1) Accelerated hypertension Current Visit: Yes Status: Acute Code(s): I10 - ESSENTIAL (PRIMARY) HYPERTENSION SNOMED Code(s): 52011325 (2) History of CVA (cerebrovascular accident) Current Visit: Yes Status: Acute Code(s): Z86.73 - PRSNL HX OF TIA (TIA), AND CEREB INFRC W/O RESID DEFICITS SNOMED Code(s): 476676915 (3) Chronic headaches Current Visit: Yes Status: Acute Code(s): R51 - HEADACHE SNOMED Code(s): 282131188 (4) Hyperlipidemia LDL goal <70 Current Visit: Yes Status: Acute Code(s): E78.5 - HYPERLIPIDEMIA, UNSPECIFIED SNOMED Code(s): 36931556 (5) Bipolar I disorder Current Visit: Yes Status: Acute Code(s): F31.9 - BIPOLAR DISORDER, UNSPECIFIED SNOMED Code(s): 533222806 (6) Smoking Current Visit: Yes Status: Acute Code(s): F17.200 - NICOTINE DEPENDENCE, UNSPECIFIED, UNCOMPLICATED SNOMED Code(s): 39332655 (7) Depression Current Visit: No Status: Acute Code(s): F32.9 - MAJOR DEPRESSIVE DISORDER, SINGLE EPISODE, UNSPECIFIED SNOMED Code(s): 22864546 (8) Suicidal ideation Current Visit: No Status: Acute Code(s): R45.851 - SUICIDAL IDEATIONS SNOMED Code(s): 6599495 Plan: The patient is admitted to the mental health unit with suicidal ideation will defer to the acute inpatient psychiatry regarding modifications of his psychotropic regimen along with ongoing cognitive behavioral therapy. Medically the patient blood pressure is elevated we'll give him a dose of clonidine and continue to monitor his blood pressures every 8 hours. We'll continue his home regimen of Norvasc. The patient has ongoing complaints of headaches which are possibly migraine in nature and also reports a history of a pituitary abnormality that is being worked up by his neurologist Dr. Casiano will plan to consult neurology for possible suppressive therapy for the headaches. The patient's LDL is currently not at goal however it appears that his Lipitor was recently increased to 20 mg PO qhs. Plan to continue dual antiplatelet therapy with Plavix and aspirin and continue to follow his clinical course. I appreciate the opportunity to be involved in the care of this patient. Further questions please do not hesitate to contact the [facility] emergency department inpatient team.
--- NOTE | 2018-06-16 18:07 | P.CNNES ---
History of Present Illness Consult date: 06/16/18 Reason for Consult: Patient with history of stroke and chronic headaches. History of Present Illness: This patient is a 58-year-old right-handed -[place]ese male who was admitted to the inpatient psychiatric unit on 06/16/2018 for suicidal ideation and bipolar disorder. Patient has a history of having suffered a stroke in December of this last year. Following his stroke he has been left with some chronic headaches. Recently he has been having great deal of stress and had come into the emergency room with complaints of suicidal ideation. For this reason he was admitted to the inpatient psychiatric unit for further management. He has been seen in the outpatient neurology clinic after his stroke and was recommended further follow-up for possibility of a pituitary adenoma. He was recommended to undergo a follow-up MRI of the brain about 2 months ago and we will need to review the MRI results. The patient states that he was to follow-up with supervisor laundry but we're not sure if he has had this appointment. Patient was sent to cardiology for BRYON procedure recently that was performed on 03/15/2018. This BRYON revealed evidence of a patent foramen ovale with a [id number] shunt. He was seen by Dr. Orantes for this condition. He was recommended conservative management and he is going to be reevaluated in August 2018 for further evaluation and treatment. According to the patient he is to follow-up with Dr. Parry who diagnosed a PFO and is scheduling also to have a stress test done. Due to his symptoms of extreme depression and mood disorder and suicidal ideation he was admitted to the inpatient psychiatric floor for further management. He is being followed by Dr. Steel for further management of his bipolar disorder. He has been having recurrent headaches mostly on his right side that has been ongoing since his stroke. He does have evidence of occipital tenderness bilaterally much worse on the right side. This may be the contributing factor for most of his right-sided occipital headache pain. We have recommended patient undergo an occipital nerve block procedure on the right for further treatment and management. His blood pressure also is running elevated and would recommend to consider increasing his Norvasc dose for further management of the mild hypertension. We will obtain a routine computed tomography scan of the brain as this was not done on admission. Depending on how he responds to the occipital nerve block procedure further recommendations will be given. His neurological examination today is nonfocal. He does have occipital tenderness on palpation which she rates as 5/ 10 on the right suboccipital notch. We have reviewed our recommendations today with the patient. Once again we would recommend tight control of his blood pressure which may be contributing to some of his chronic headache symptoms. We will await further recommendations from Dr. Steel for treatment of his bipolar 1 disorder. His overall prognosis at this time remains guarded. Review of Systems Constitutional: Denies chills, Denies fever Eyes: denies blurred vision, denies pain Ears, nose, mouth and throat: Denies headache, Denies sore throat Cardiovascular: Denies chest pain, Denies shortness of breath Respiratory: Denies cough Gastrointestinal: Denies abdominal pain, Denies diarrhea, Denies nausea, Denies vomiting Musculoskeletal: Denies myalgias Integumentary: Denies pruritus, Denies rash Neurological: Reports headaches, Denies numbness, Denies weakness Psychiatric: Reports anxiety attacks, Reports change in sleep habits, Reports irritability, Reports mood swings, Reports suicidal ideation, Denies anxiety, Denies depression Endocrine: Denies fatigue, Denies weight change Past Medical History Past Medical History: CVA/TIA, Hyperlipidemia, Hypertension Additional Past Medical History / Comment(s): STROKE 01/04/18, CHRONIC BRONCHITIS , History of Any Multi-Drug Resistant Organisms: None Reported Past Surgical History: Hernia Repair Past Anesthesia/Blood Transfusion Reactions: No Reported Reaction Smoking Status: Current every day smoker - Past Family History Father Family Medical History: Cancer Medications and Allergies Home Medications Medication Instructions Recorded Confirmed Type OXcarbazepine [Trileptal] 300 mg PO BID 30 Days #60 tab 09/26/17 06/15/18 Rx QUEtiapine [SEROquel] 200 mg PO HS 30 Days #30 tab 09/26/17 06/15/18 Rx Aspirin 325 mg PO DAILY 03/14/18 06/15/18 History Clopidogrel [Plavix] 75 mg PO DAILY 03/14/18 06/15/18 History Famotidine [Pepcid] 20 mg PO DAILY 03/14/18 06/15/18 History Atorvastatin [Lipitor] 20 mg PO HS 06/15/18 06/15/18 History Nicotine 14Mg/24Hr Patch [Habitrol 1 patch TRANSDERM DAILY 06/15/18 06/15/18 History 14Mg/24Hr Patch] amLODIPine [Norvasc] 10 mg PO DAILY 06/15/18 06/15/18 History Allergies Allergy/AdvReac Type Severity Reaction Status Date / Time No Known Allergies Allergy Verified 06/16/18 06:25 Physical Examination - Vital Signs Vital Signs: Vital Signs Temp Pulse Pulse Resp BP BP BP 06/16/18 16:11 82 16 97/57 06/16/18 13:41 73 160/88 06/16/18 06:37 98.1 F 68 20 06/16/18 05:13 69 16 141/83 06/15/18 20:44 99.1 F 82 16 159/99 BP Pulse Ox 06/16/18 16:11 06/16/18 13:41 06/16/18 06:37 154/87 06/16/18 05:13 97 06/15/18 20:44 97 Intake and Output 06/16/18 06/16/18 06/16/18 06:59 14:59 22:59 Other: Weight 100.698 kg - Constitutional General appearance: average body habitus, cooperative - EENT EENT: PERRL, mucous membranes moist - Respiratory Respiratory: lungs clear, normal breath sounds - Cardiovascular Cardiovascular: regular rate, normal S1, normal S2 Extremities: no peripheral edema bilaterally - Gastrointestinal Gastrointestinal: normoactive bowel sounds - Integumentary Integumentary: normal - Neurologic Cranial nerve examination: PERRL, EOMI, VFF, V1/V2/V3 grossly intact, tongue midline, intact gag reflex, intact corneal reflex, normal palatal elevation Speech examination: intact Sensorimotor examination: intact Motor examination - right side: 4/5: biceps, triceps, wrist flexion, wrist extension, bridge design engineer, hip flexors, knee extensors, dorsiflexion, toe extension (EHL) , plantarflexion Motor examination - left side: 4/5: biceps, triceps, wrist flexion, wrist extension, bridge design engineer, hip flexors, knee extensors, dorsiflexion, toe extension (EHL) , plantarflexion Detailed sensory examination: intact Reflex and gait examination: intact Reflexes: 1+: ankle, bicep, knee, tricep - Musculoskeletal Musculoskeletal: no pain - Psychiatric Psychiatric: mood/affect appropriate, cooperative Results - Laboratory Findings CBC and BMP: 06/16/18 08:50 06/16/18 08:50 Abnormal Lab Findings: Abnormal Labs 12/28/18 08:50 Glucose 123 H Triglycerides 159 H Cholesterol 243 H LDL Cholesterol, Calc 179 H HDL Cholesterol 32 L Assessment and Plan (1) Occipital neuritis Current Visit: Yes Status: Acute Code(s): M54.81 - OCCIPITAL NEURALGIA SNOMED Code(s): 75464490 (2) Accelerated hypertension Current Visit: Yes Status: Acute Code(s): I10 - ESSENTIAL (PRIMARY) HYPERTENSION SNOMED Code(s): 78123313 (3) Bipolar I disorder Current Visit: Yes Status: Acute Code(s): F31.9 - BIPOLAR DISORDER, UNSPECIFIED SNOMED Code(s): 121689722 (4) History of CVA (cerebrovascular accident) Current Visit: Yes Status: Acute Code(s): Z86.73 - PRSNL HX OF TIA (TIA), AND CEREB INFRC W/O RESID DEFICITS SNOMED Code(s): 860634620 (5) Suicidal ideation Current Visit: No Status: Acute Code(s): R45.851 - SUICIDAL IDEATIONS SNOMED Code(s): 2212154 Plan: This patient is a 58-year-old male who recently suffered a stroke early this summer. Following the stroke he has been having chronic headaches. He was admitted to the inpatient psychiatric unit today for further management of suicidal ideation and bipolar 1 disorder. His headaches have remained ongoing and for this reason neurology was consulted today for further assessment. We are recommending patient to have a computed tomography scan of the brain done today as this was not done on admission. We would recommend patient to have a right occipital nerve block procedure for treatment of right occipital neuritis. His blood pressure is running mildly elevated and has accelerated hypertension. Would recommend the patient to have his Norvasc dosage adjusted for further management of the hypertension. This will help control his headaches as well. We will monitor how he responds to the occipital nerve block procedure and consider other treatment options for him depending on his response. We will continue to follow his progress closely during this admission. His overall prognosis at this time remains guarded. Time with Patient: Greater than 30
--- NOTE | 2018-06-16 19:15 | CT ---
EXAMINATION TYPE: CT brain wo con DATE OF EXAM: 06/16/2018 COMPARISON: None HISTORY: headache CT DLP: 1245 mGycm Automated exposure control for dose reduction was used. FINDINGS: There is 2 x 1 cm area of hypodensity left posterior temporal lobe consistent with old cortical infar ct. There is no mass effect nor midline shift. There is some widening of the left sylvian fissure. Th ere is no evidence of intracranial hemorrhage. The calvarium is intact. IMPRESSION: OLD TEMPORAL LOBE INFARCT AND ATROPHY. NO ACUTE INTRACRANIAL ABNORMALITY.
[2018-06-16] MEDS ORDERED: QUEtiapine 100 MG TAB PO SCH (21:00)
[2018-06-16] MEDS: ATORVASTATIN 20 MG TAB PO SCH (21:16)
[2018-06-17] MEDS: NICOTINE 14MG/24HR PATCH TRANSDERM SCH (07:27)
[2018-06-17] MEDS: ASPIRIN 325 MG TAB PO SCH (07:27)
[2018-06-17] MEDS: CLOPIDOGREL 75 MG TAB PO SCH (07:27)
[2018-06-17] MEDS: amLODIPine 10 MG TAB PO SCH (07:28)
[2018-06-17] MEDS: OXcarbazepine 150 MG TAB PO SCH (07:28)
--- NOTE | 2018-06-17 08:17 | P.PAINCN ---
History of Present Illness - Reason for Consult Consult date: 06/17/18 - Chief Complaint Headaches - History of Present Illness Mr. Jay is a 58-year-old gentleman who is admitted to the hospital secondary to psychiatric illness. He has been on the psychiatric jasso secondary to suicidal ideations. He has been seen by neurology secondary to his headaches. He has a history of a stroke about one year ago and has been following with neurologist. He also has a patent foramen ovale which she is being followed by Dr. Orantes. After being seen by neurology they feel that the patient's right- sided headaches may be secondary to occipital neuralgia. Patient has tenderness to palpation over the occiput on both sides but mostly on the right side. They've requested in occipital nerve block to assist in the diagnosis. Mr. Jay continues to have headaches which are bilateral but mostly on the right which are mostly posterior radiate anteriorly. He reports that the pain is worse throughout the day and comes and goes without any inciting event. He reports she's had this pain since she's had a stroke. He denies any visual changes, any hearing changes, or any dysphagia. He denies any weakness in his lower extremities or upper extremities secondary to the pain or associated with any type of pain. Review of Systems Constitutional: Denies chills, Denies fever Eyes: denies blurred vision, denies decreased vision, denies photophobia Ears: deny: decreased hearing, earache, tinnitus Ears, nose, mouth and throat: Denies headache, Denies sore throat Cardiovascular: Denies chest pain, Denies shortness of breath Respiratory: Denies cough Neurological: Denies numbness, Denies weakness Psychiatric: Reports as per HPI Past Medical History Past Medical History: CVA/TIA, Hyperlipidemia, Hypertension Additional Past Medical History / Comment(s): STROKE 01/04/18, CHRONIC BRONCHITIS , History of Any Multi-Drug Resistant Organisms: None Reported Past Surgical History: Hernia Repair Past Anesthesia/Blood Transfusion Reactions: No Reported Reaction Smoking Status: Current every day smoker - Past Family History Father Family Medical History: Cancer Medications and Allergies Home Medications Medication Instructions Recorded Confirmed Type OXcarbazepine [Trileptal] 300 mg PO BID 30 Days #60 tab 09/26/17 06/15/18 Rx QUEtiapine [SEROquel] 200 mg PO HS 30 Days #30 tab 09/26/17 06/15/18 Rx Aspirin 325 mg PO DAILY 03/14/18 06/15/18 History Clopidogrel [Plavix] 75 mg PO DAILY 03/14/18 06/15/18 History Famotidine [Pepcid] 20 mg PO DAILY 03/14/18 06/15/18 History Atorvastatin [Lipitor] 20 mg PO HS 06/15/18 06/15/18 History Nicotine 14Mg/24Hr Patch [Habitrol 1 patch TRANSDERM DAILY 06/15/18 06/15/18 History 14Mg/24Hr Patch] amLODIPine [Norvasc] 10 mg PO DAILY 06/15/18 06/15/18 History Allergies Allergy/AdvReac Type Severity Reaction Status Date / Time No Known Allergies Allergy Verified 06/16/18 06:25 Physical Exam Vitals: Vital Signs Temp Pulse Resp BP BP 06/17/18 06:22 97.8 F 63 16 123/67 06/16/18 21:18 79 18 141/84 06/16/18 16:11 82 16 97/57 06/16/18 13:41 73 160/88 - Constitutional General appearance: Awake, alert, no distress - EENT EENT: Pupils are round, equal, sclera are anicteric - Respiratory Respiratory: Breath sounds are equal bilateral, no audible wheezing, no accessory muscle usage - Cardiovascular Cardiovascular: regular rate, palpable pulses bilateral upper and lower extremities Extremities: no peripheral edema bilaterally - Gastrointestinal Gastrointestinal: Nondistended, nontender to palpation - Integumentary Integumentary: No skin lesions, carlson, or rash - Neurologic Cranial nerve examination: Pupils are equal and round, facial muscles are equal , tongue is in the midline, shoulder shrug is equal Speech examination: intact Sensorimotor examination: intact Motor examination - right side: 5 out of 5 bilateral, Quintana's is negative Head-tender to palpation over bilateral occiput mostly over the right side. There is no signs of infection, hematoma or other acute process - Psychiatric Psychiatric: mood/affect appropriate, cooperative Results CBC & Chem 7: 06/16/18 08:50 06/16/18 08:50 Labs: Abnormal Lab Results - Last 24 Hours (Table) 06/16/18 Range/Units 08:50 Glucose 123 H (74-99) mg/dL Triglycerides 159 H (<150) mg/dL Cholesterol 243 H (<200) mg/dL LDL Cholesterol, Calc 179 H (0-99) mg/dL HDL Cholesterol 32 L (40-60) mg/dL Assessment and Plan Assessment: #1 chronic headaches #2 history of stroke #3 hypertension Plan: Plan is to proceed with an occipital nerve block on the right side as it diagnostic tool. We'll perform a diagnostic occipital nerve block at the bedside today. Patient follow-up with neurology secondary to his diagnostic request. I do agree with increase in blood pressure medications to control blood pressure and see if that also improves his headaches. If there is no improvement with occipital nerve block don't consider this pain likely be central in nature secondary to patient's history of stroke. Please see procedure note for details Time with Patient: Less than 30 PQRS Measure Charge Sheet PQRS Narrative: Smoking Status Current every day smoker Blood Pressure [Left Arm] 123/67 Blood Pressure [Left Arm 160/88 Standing] Blood Pressure [Right Arm 154/87 Sitting] Blood Pressure 141/83 Pain Intensity [Anterior Head] 6 Pain Intensity 0 Pain Scale Used Numeric (1 - 10) Scale Used Numeric (1 - 10) Home Medications: Ambulatory Orders OXcarbazepine [Trileptal] 300 mg PO BID 30 Days #60 tab 09/26/17 QUEtiapine [SEROquel] 200 mg PO HS 30 Days #30 tab 09/26/17 Aspirin 325 mg PO DAILY 03/14/18 Clopidogrel [Plavix] 75 mg PO DAILY 03/14/18 Famotidine [Pepcid] 20 mg PO DAILY 03/14/18 Atorvastatin [Lipitor] 20 mg PO HS 06/15/18 Nicotine 14Mg/24Hr Patch [Habitrol 14Mg/24Hr Patch] 1 patch TRANSDERM DAILY amLODIPine [Norvasc] 10 mg PO DAILY 06/15/18
--- NOTE | 2018-06-17 08:22 | P.PCN ---
Date of Procedure: 06/17/18 Preoperative Diagnosis: Occipital neuralgia Postoperative Diagnosis: Same Procedure(s) Performed: Occipital nerve block right side Anesthesia: none Surgeon: Liana Toro Description of Procedure: Pre-operative diagnosis: 1-right occipital neuralgea Post Operative Diagnosis Same Procedure: Right side occipital nerve block EBL: none PROCEDURE INDICATION: See consult note PROCEDURE DESCRIPTION / TECHNIQUE: Patient was seen at the floor and was evaluated. Please see consult note. Patient was seen on the medical unit. He was positioned in a chair sitting up. Head was flexed forward. Palpation over the occiput was done and the area was sterilized with ChloraPrep. Palpation of the occiput revealed the occipital protuberance in the midline. The area was then identified 2.5 centimeters lateral and 2 cm inferior to the occipital protuberance. a 25g needle was introduced and negative aspiration confirmed, 3 ML's of 2% lidocaine with 10 mg of dexamethasone was injected after negative aspiration. Patient tolerated procedure well. No acute complications.
[2018-06-17] MEDS ORDERED: METOPROLOL TARTRATE 50 MG TAB PO STA (12:36)
[2018-06-17] MEDS: ATORVASTATIN 20 MG TAB PO SCH (21:19)
[2018-06-17] MEDS: METOPROLOL TARTRATE 25 MG TAB PO SCH (21:19)
[2018-06-17] MEDS: QUEtiapine 100 MG TAB PO SCH (21:19)
--- NOTE | 2018-06-17 22:16 | PN ---
DATE OF SERVICE: 06/17/2018 PROGRESS NOTE CHIEF COMPLAINT: The patient was depressed with suicide thoughts. He had a plan of jumping in front of a car or jumping into the river. INTERVAL HISTORY: The patient has been doing fair. He had a quiet evening last night. He slept well. Today he has been up. He comes out in the day area. He has attended groups today. He generally has been appropriate and seemed to engage well in groups. He will interact with others. He has been cooperative with care. He talked at length about some of the issues he has been struggling with. He notes that he has been sober from alcohol for 8 months until just prior to admission. He also had done some cocaine. He says otherwise he had not done cocaine in a long period of time. He talked about stress issues with his girlfriend, living situation and loss of independence due to having suffered a stroke this past December. He had been working doing the [employer] and now is unemployed, though says that he feels he could get back to doing that kind of work. He tolerates his psychotropic medication. MENTAL STATUS: Patient gave good eye contact. He was somewhat restless. He answered questions with direct responses. His thoughts were clear. His affect was somewhat intense. His mood dysphoric. At times he would smile, though at other times he seemed to get anxious. He appeared somewhat distressed. There was no immediate evidence for thought disorder. ASSESSMENT: I will continue the current diagnosis and treatment plan. I will continue psychotropic medication the same. Patient is tolerating the start up of Seroquel which he had been on previously. I will increase the dose to 300 mg a day. I reviewed indications for Seroquel as well as side effects and potential risks. We reviewed metabolic concerns. We will continue to focus on stabilization and discharge planning. MMODL / IJN: [id number] / ABHI
[2018-06-18] MEDS: amLODIPine 10 MG TAB PO SCH (08:25)
[2018-06-18] MEDS: METOPROLOL TARTRATE 25 MG TAB PO SCH ×2 (08:25→19:59)
[2018-06-18] MEDS: CLOPIDOGREL 75 MG TAB PO SCH (08:25)
[2018-06-18] MEDS: NICOTINE 14MG/24HR PATCH TRANSDERM SCH (08:25)
[2018-06-18] MEDS: ASPIRIN 325 MG TAB PO SCH (08:29)
--- NOTE | 2018-06-18 15:17 | P.PN ---
Subjective Progress Note Date: 06/18/18 Patient seen and examined today, feeling much better reports that his headaches are much improved In that his blood pressures are stabilizing . Patient seen by neurology Dr. Casiano and diagnosed with occipital neuritis and is status post nerve block done yesterday . No acute events overnight Objective - Vital Signs Vital signs: Vital Signs Temp 98.0 F 06/18/18 06:33 Pulse 79 06/18/18 10:45 Resp 20 06/18/18 10:45 BP 136/86 06/18/18 13:41 Pulse Ox 97 06/16/18 05:13 Intake & Output 06/17/18 06/18/18 06/18/18 18:59 06:59 18:59 Weight 102.5 kg - Exam Constitutional: No acute distress, conversant, pleasant Eyes: Anicteric sclerae, moist conjunctiva, no lid-lag, PERRLA ENMT: NC/AT,Oropharynx clear, no erythema, exudates Neck:Supple, FROM, no masses, or JVD, No carotid bruits; No thyromegaly Lungs: Clear to auscultation, Clear to percussion, Normal respiratory effort, no accessory muscle use Cardiovascular: Heart regular in rate and rhythm, No murmurs, gallops, or rubs no peripheral edema Abdominal: Soft Nontender, nom distended, no guarding, no rebound or rigidity, Normoactive bowel sounds No hepatomegaly, No splenomegaly, No palpable mass No abdominal wall hernia noted Skin: Normal temperature, tone, texture, turgor, No induration No subcutaneous nodules, No rash, lesions, No ulcers Extremities:No digital cyanosis No clubbing, Pedal pulses intact and symmetrical Radial pulses intact and symmetrical Normal gait and station, No calf tenderness Psychiatric: Alert and oriented to person, place and time, Appropriate affect Intact judgement Neuro: Muscles Strength 5/5 in all 4 extremities, Sensation to light touch grossly present throughout, Cranial nerves II-XII grossly intact. No focal sensory deficits - Labs CBC & Chem 7: 06/16/18 08:50 06/16/18 08:50 Assessment and Plan (1) Accelerated hypertension Narrative/Plan: * Blood pressure stabilizing much improved continue current regimen * Continue metoprolol 50 more grams by mouth twice a day and Norvasc 10 mg daily Current Visit: Yes Status: Resolved Code(s): I10 - ESSENTIAL (PRIMARY) HYPERTENSION SNOMED Code(s): 46205257 (2) History of CVA (cerebrovascular accident) Narrative/Plan: * Continue antiplatelet therapy with aspirin and Plavix Current Visit: Yes Status: Acute Code(s): Z86.73 - PRSNL HX OF TIA (TIA), AND CEREB INFRC W/O RESID DEFICITS SNOMED Code(s): 587878842 (3) Chronic headaches Narrative/Plan: * Neurology following doing well post-occipital nerve block Current Visit: Yes Status: Acute Code(s): R51 - HEADACHE SNOMED Code(s): 015101874 (4) Occipital neuritis Current Visit: Yes Status: Acute Code(s): M54.81 - OCCIPITAL NEURALGIA SNOMED Code(s): 00677120 (5) Hyperlipidemia LDL goal <70 Narrative/Plan: * Continue statin therapy Current Visit: Yes Status: Acute Code(s): E78.5 - HYPERLIPIDEMIA, UNSPECIFIED SNOMED Code(s): 65010086 (6) Bipolar I disorder Current Visit: Yes Status: Acute Code(s): F31.9 - BIPOLAR DISORDER, UNSPECIFIED SNOMED Code(s): 559674710 (7) Smoking Current Visit: Yes Status: Acute Code(s): F17.200 - NICOTINE DEPENDENCE, UNSPECIFIED, UNCOMPLICATED SNOMED Code(s): 60946263 (8) Depression Current Visit: No Status: Acute Code(s): F32.9 - MAJOR DEPRESSIVE DISORDER, SINGLE EPISODE, UNSPECIFIED SNOMED Code(s): 11072778 (9) Suicidal ideation Current Visit: No Status: Acute Code(s): R45.851 - SUICIDAL IDEATIONS SNOMED Code(s): 6829454 Plan: Patient doing much better medically speaking today we'll plan to sign off for further questions or concerns do not hesitate to contact the [facility] inpatient team
--- NOTE | 2018-06-18 16:25 | P.PN ---
Subjective Progress Note Date: 06/18/18 This patient is a 58-year-old male who was seen today on the inpatient psychiatric unit for neurology follow-up. Patient was found to have evidence of occipital neuritis and we had recommended for him to undergo an occipital nerve block procedure. He had the procedure done yesterday and is doing much better with complete resolution of his headache pain symptoms. He is being treated by psychiatry for underlying bipolar 1 disorder and suicidal ideation. Psychiatry is made adjustments on his medications. Overall he is feeling much better in terms of his headache symptoms after undergoing the occipital nerve block procedure yesterday. We also sent him for a computed tomography scan of the brain on 06/16/2018 which revealed evidence of a old left temporal lobe infarct and atrophy. No acute changes were noted. We reviewed the results of the CAT scan today with the patient as well. Patient is doing much better overall in terms of his headache symptoms. We suggested he follow-up with the recommendations from psychiatry and further management of his underlying psychiatric symptoms. We will continue to follow him closely for any further changes in terms of his headache and stroke symptoms. Case was discussed at length today with the patient and all of his questions were answered. He is aware of all the test results. He also is very happy with the improvement with his headaches after undergoing the occipital nerve block procedure yesterday. His overall prognosis at this time remains guarded. Objective - Vital Signs Vital signs: Vital Signs Temp 98.0 F 06/18/18 06:33 Pulse 79 06/18/18 10:45 Resp 20 06/18/18 10:45 BP 136/86 06/18/18 13:41 Pulse Ox 97 06/16/18 05:13 Intake & Output 06/17/18 06/18/18 06/18/18 18:59 06:59 18:59 Weight 102.5 kg - Exam Physical examination: PHYSICAL EXAMINATION: Patient is resting comfortably in bed. VITAL SIGNS: Blood pressure is [157/83]. Heart rate is [80]. Respiration is [20] . Temperature is [98.0]. HEENT: Head is atraumatic, neck is supple, there were no carotid bruits. CHEST: Lungs are clear to auscultation and percussion. CARDIAC: S1, S2 normal rate and rhythm. There is no murmur. ABDOMEN: Soft and nontender. Bowel sounds are present. EXTREMITIES: There is no pedal edema. Peripheral pulses are present. Neurological examination: Patient has a nonfocal neurological examination today. - Labs CBC & Chem 7: 06/16/18 08:50 06/16/18 08:50 Assessment and Plan (1) Occipital neuritis Current Visit: Yes Status: Acute Code(s): M54.81 - OCCIPITAL NEURALGIA SNOMED Code(s): 65827760 (2) Accelerated hypertension Current Visit: Yes Status: Resolved Code(s): I10 - ESSENTIAL (PRIMARY) HYPERTENSION SNOMED Code(s): 58820678 (3) Bipolar I disorder Current Visit: Yes Status: Acute Code(s): F31.9 - BIPOLAR DISORDER, UNSPECIFIED SNOMED Code(s): 886504469 (4) History of CVA (cerebrovascular accident) Current Visit: Yes Status: Acute Code(s): Z86.73 - PRSNL HX OF TIA (TIA), AND CEREB INFRC W/O RESID DEFICITS SNOMED Code(s): 001112439 (5) Suicidal ideation Current Visit: No Status: Acute Code(s): R45.851 - SUICIDAL IDEATIONS SNOMED Code(s): 2007855 Plan: This patient is a 58-year-old male who is seen today in neurology follow-up in the inpatient psychiatric unit. Neurology was consulted for evaluation of recurrent and chronic headaches. Patient underwent a occipital nerve block procedure yesterday which was very helpful and is completely resolved all of his headache symptoms currently. Patient is very grateful that the procedure worked so well for him yesterday. We would recommend he continue to monitor for any recurrent headache pain symptoms. We reviewed the results of the computed tomography scan of the brain that was done on 06/16/2018 with him in detail. There is evidence only of his old left temporal lobe infarct. There was no evidence of any new or acute stroke or hemorrhage. We will review the results of the CAT scan with the patient today in detail. All of his questions were answered. Overall he is making good progress and should follow-up with the recommendations from psychiatry for further management of his psychiatric issues. We will continue to follow the patient closely during this admission.
--- NOTE | 2018-06-18 18:06 | PN ---
PROGRESS NOTE DATE OF SERVICE: 06/18/2018 CHIEF COMPLAINT: The patient was depressed with suicide thoughts. He had a plan of jumping in front of a car or jumping into the river. INTERVAL HISTORY: Patient has been doing fairly well. He had a quiet evening last night. He slept well. Today he has been up. He comes out in the day area. He interacts with others. He feels his mood has been improving and he has a better outlook. He has not been attending groups. He says he has been working on therapeutic walking where he is using good posture and trying to keep his upper body relaxed. He says he feels that he is making progress in plans towards discharge. It is noted that he tends to be quite talkative on the unit. He interacts with others. He has been cooperative with care. MENTAL STATUS: Patient gave good eye contact. Psychomotor activity was a little restless. He answered questions with direct responses. His thoughts were clear. His affect was in the reasonable range. His mood was even. He did not appear to be distressed. ASSESSMENT: I will continue the current diagnosis and treatment plan. I will continue psychotropic medications the same. We reviewed discharge planning issues. The patient has been tolerating his medications well. We will aim to discharge the patient fairly soon. MMODL / IJN: [id number] /
[2018-06-18] MEDS: ATORVASTATIN 20 MG TAB PO SCH (19:59)
[2018-06-18] MEDS: QUEtiapine 100 MG TAB PO SCH (21:25)
[2018-06-19] MEDS: CLOPIDOGREL 75 MG TAB PO SCH (09:11)
[2018-06-19] MEDS: ASPIRIN 325 MG TAB PO SCH (09:11)
[2018-06-19] MEDS: NICOTINE 14MG/24HR PATCH TRANSDERM SCH (09:11)
[2018-06-19] MEDS: amLODIPine 10 MG TAB PO SCH (09:11)
[2018-06-19] MEDS: METOPROLOL TARTRATE 25 MG TAB PO SCH ×2 (09:11→21:10)
--- NOTE | 2018-06-19 10:15 | P.PN ---
Progress Note - Text Interval history: The patient is found in his room he follows me to an interview room. In my absence he has been seen by neurology anesthesia. He underwent a computed tomography scan. He was diagnosed with occipital neuritis and was given an accidental nerve block. He reports his headache pain is much improved. His Seroquel was titrated to 300 mg at bedtime. The Trileptal will be started. He requests to meet with an title attorney regarding the PPO filed against him. He states he has been eating sleep has been somewhat impaired. He states that he is having no suicidal thoughts today but he did just over a day ago. He has no questions or concerns regarding treatment. Mental status exam: The patient is an -[place] male appearing his stated age. He is dressed in hospital gowns. Eye contact is intermittent speech is fluent spontaneous nonpressured. He indicates his mood is depressed he is reporting no acute suicidal ideation today. He reports trying to except the fact that his girlfriend hates him. He states he needs to walk away from that relationship. He is reporting no auditory or visual hallucinations he is endorsing no specific delusions. Insight and judgment limited. He demonstrates no verbal or physical aggressiveness. He can be circumstantial at times but demonstrates no tangential thinking loose associations or flight of ideas. Plan: The patient will continue on the Seroquel as written we will restart the Trileptal 150 mg twice daily. He is reporting no pain at this time. He is encouraged to participate in the milieu. Vital signs reviewed. His antihypertensive medication has been adjusted.
[2018-06-19] MEDS: ATORVASTATIN 20 MG TAB PO SCH (21:10)
[2018-06-19] MEDS: QUEtiapine 100 MG TAB PO SCH (21:11)
[2018-06-19] MEDS: OXcarbazepine 150 MG TAB PO SCH (21:11)
[2018-06-20] MEDS: ASPIRIN 325 MG TAB PO SCH (08:37)
[2018-06-20] MEDS: METOPROLOL TARTRATE 25 MG TAB PO SCH ×2 (08:37→21:37)
[2018-06-20] MEDS: amLODIPine 10 MG TAB PO SCH (08:37)
[2018-06-20] MEDS: OXcarbazepine 150 MG TAB PO SCH ×2 (08:37→21:37)
[2018-06-20] MEDS: CLOPIDOGREL 75 MG TAB PO SCH (08:37)
[2018-06-20] MEDS: NICOTINE 14MG/24HR PATCH TRANSDERM SCH (08:37)
--- NOTE | 2018-06-20 12:22 | P.PN ---
Progress Note - Text Interval history: The patient is found in group he follows me to an interview room. He indicates that his mood is improving. He feels his life has been messed up but he still alive and he feels he can put together a plan upon discharge. He is hoping that he will be cleared of anything on the and can return to his apartment. He otherwise plans to reside at the senior care. He states if he is cleared by his doctor he will resume his job and will be able to afford his own place to live anyway. He reports that he did sleep last night appetite stable. He has no questions or concerns regarding his current treatment. Mental status exam: The patient is an -[place] male appearing his stated age. He is dressed in hospital gowns. Eye contact is appropriate. He is pleasant and cooperative and easily directed. He indicates his mood is improving. He is feeling less hopeless. He denies having any acute suicidal or homicidal ideation intent or plan today. He is reporting no auditory or visual hallucinations or any specific delusions. He demonstrates no tangential thinking loose associations or flight of ideas. He demonstrates no verbal or physical aggressiveness. He is oriented to person place and date. Plan: The patient will continue on his current psychotropic medication. He is beginning to clinically stabilize. We will monitor him for safety and encourage participation in the milieu. He may be appropriate for discharge in the next 1-2 days depending on his clinical status. Vital signs reviewed.
[2018-06-20 15:26] VITALS: BMI 31.5
[2018-06-20] MEDS: ATORVASTATIN 20 MG TAB PO SCH (21:36)
[2018-06-20] MEDS: QUEtiapine 100 MG TAB PO SCH (21:37)
[2018-06-21] MEDS: NICOTINE 14MG/24HR PATCH TRANSDERM SCH (08:05)
[2018-06-21] MEDS: OXcarbazepine 150 MG TAB PO SCH ×2 (08:06→20:45)
[2018-06-21] MEDS: CLOPIDOGREL 75 MG TAB PO SCH (08:06)
[2018-06-21] MEDS: METOPROLOL TARTRATE 25 MG TAB PO SCH ×2 (08:06→20:44)
[2018-06-21] MEDS: ASPIRIN 325 MG TAB PO SCH (08:06)
[2018-06-21] MEDS: amLODIPine 10 MG TAB PO SCH (08:06)
--- NOTE | 2018-06-21 11:03 | PN ---
PROGRESS NOTE DATE OF SERVICE: 06/21/2018 CHIEF COMPLAINT: The patient was depressed with suicide thoughts. He had a plan of jumping in front of a car or jumping into the river. INTERVAL HISTORY: The patient has been doing fairly well overall. He had a quiet evening last night. It was documented he slept 6.5 hours last night. Today, he was in his room this morning, laying in bed, though he was not sleeping when I saw him. He attended most groups yesterday. Generally, he is appropriate in groups. Sometimes he is a little disconnected in things he talks about, though for the most part, he seemed to be making an effort to engage appropriately in the groups. He generally is calm. He does talk quite a bit. Sometimes he gets a little intense. Sometimes he has a little trouble tracking the conversation. For the most part, he seems to be able to engage appropriately with others. His mood has been gradually improving. He has had a more even mood. He appears to tolerate his psychotropic medications well. MENTAL STATUS: Patient gave fair eye contact. Psychomotor activity was a little slowed. He answered questions with brief responses. His thoughts were clear. His affect was a little constricted. His mood was quiet. He did appear to be distressed. ASSESSMENT: I will continue the current diagnosis and treatment plan. I will continue psychotropic medications the same. We will continue to focus on stabilization and discharge planning. AVILA / EUGENIE: [id number] /
[2018-06-21] MEDS: QUEtiapine 100 MG TAB PO SCH (20:44)
[2018-06-21] MEDS: ATORVASTATIN 20 MG TAB PO SCH (20:45)
[2018-06-21 20:47] VITALS: RESP 18
[2018-06-22 07:15] VITALS: BP 124/86; PULSE 72; TEMP 98.2
[2018-06-22] MEDS: CLOPIDOGREL 75 MG TAB PO SCH (08:20)
[2018-06-22] MEDS: ASPIRIN 325 MG TAB PO SCH (08:20)
[2018-06-22] MEDS: amLODIPine 10 MG TAB PO SCH (08:22)
[2018-06-22] MEDS: METOPROLOL TARTRATE 25 MG TAB PO SCH (08:22)
[2018-06-22] MEDS: NICOTINE 14MG/24HR PATCH TRANSDERM SCH (08:22)
[2018-06-22] MEDS: OXcarbazepine 150 MG TAB PO SCH (08:22)
--- NOTE | 2018-06-22 10:20 | P.DS ---
Providers Date of admission: 06/16/18 05:05 Expected date of discharge: 06/22/18 Attending physician: Mauricio Steel Consults: 06/16/18 05:55 Consult Physician Routine Consulting Provider: Fercho Villa Consult Reason/Comments: Routine H & P and follow up Do you want consulting provider notified?: Already Contacted 06/16/18 14:47 Consult Physician Routine Consulting Provider: Aashish Casiano Consult Reason/Comments: chronic headache possibly migraine Do you want consulting provider notified?: Yes 06/17/18 07:00 Consult to Anesthesia Urgent Consulting Provider: Anesthesia,Services Consult Reason/Comments: Right occipital nerve block procedure by aislinn. Primary care physician: Isaura Gandhi - Discharge Diagnosis(es) (1) Bipolar I disorder Current Visit: Yes Status: Acute Priority: High (2) Alcohol use disorder Current Visit: Yes Status: Acute Priority: Medium (3) Cocaine use disorder Current Visit: Yes Status: Acute Priority: Medium Hospital Course: This patient is a 58-year-old -[place] male who was admitted to the mental health unit through the emergency room with a report of suicidal ideation. He reported that his life has been difficult ever since December when he had his cerebrovascular accident. He reported a loss of independence and income since that event. More recently he presents with suicidal thoughts as his girlfriend attempted to file a PPO against him. He states it was denied but a hearing was scheduled for later this month. Until then he is not able to return to the apartment that they share. He has been residing with friends or in the [facility]. He felt overwhelmed and had thoughts of jumping into traffic or jumping into the river as a means of committing suicide. He reported having a terrible mood and feeling hopeless. He reported having poor sleep low energy and poor appetite. He endorsed a history of manic episodes in the past. For full detail please refer to my psychiatric evaluation dated 06/16/2018. Summary of hospital course: The patient was admitted to the mental health unit voluntarily. We reviewed his presenting symptoms and treatment options. He felt that he did stabilize with the medications that were used during the last admission specifically Seroquel and Trileptal. The patient was seen by internal medicine for routine history and physical exam. A neurology and pain consult were requested by internal medicine. The patient underwent a computed tomography scan of his brain demonstrating an old left temporal lobe infarct. He also underwent an injection for occipital neuritis. The patient states that that provided significant relief as he was experiencing cephalgia. He has been cooperative on the mental health unit he has attended groups. He has been eating appropriately and participating in his activities of daily living. During the course of the admission he states his suicidal thoughts have resolved and he reports they have been gone for at least 3-4 days now. He states he harbors no feelings of anger towards his former girlfriend and realizes they need to part ways. He states today that he must of done something to hurt her this much and he does not want to exacerbate the situation. He plans to [facility] the local [facility] he is hoping that his doctor will clear him to return to his previous job so that he can afford housing again. Mental status exam: The patient is an -[place] male appearing his stated age. He has a vila fraire he wears eyeglasses. He is dressed in hospital gowns. Hygiene and grooming are adequate. Speech is fluent and spontaneous nonpressured. He can be circumstantial at times but demonstrates no tangential thinking loose associations or flight of ideas. He endorses no auditory or visual hallucinations or any specific delusions. There is no observed evidence of psychosis. He demonstrates no verbal or physical aggressiveness. He demonstrates no involuntary repetitive movements. Insight and judgment have improved. He demonstrates future oriented thinking. He is reporting no suicidal or homicidal ideation intent or plan. Specifically he denies having any thoughts of aggression towards his former girlfriend. He is oriented to person place and date. Impressions 1. Bipolar 1 disorder most recent depressed severe without psychosis, alcohol use disorder, cocaine use disorder 2. History of old left sided temporal lobe infarct 3. Discord with former girlfriend who attempted to file PPO, housing, income difficulties Plan: The patient will be discharged from mental health unit today. His suicidal thoughts have resolved. He is capable of participating in his own activities of daily living and no longer requires inpatient psychiatric hospitalization. He will continue on Seroquel 300 mg at bedtime Trileptal 150 mg twice daily. He was restarted on Norvasc Lipitor Plavix and during the course of admission was started on Lopressor as well. Prescriptions for all of these medications will be provided. He is instructed to abstain from any use of alcohol or illicit drugs. He was advised that use of these substances can elevate his safety risk. His drug screen was negative upon admission. Social work will arrange his outpatient mental health follow-up. He is instructed to return to the hospital with any acute safety concerns. Patient Condition at Discharge: Stable Plan - Discharge Summary Discharge Rx Participant: No New Discharge Prescriptions: New Metoprolol Tartrate [Lopressor] 25 mg PO BID #60 tab Nicotine 14Mg/24Hr Patch [Habitrol] 1 patch TRANSDERM DAILY #10 patch OXcarbazepine [Trileptal] 150 mg PO BID #60 tab QUEtiapine FUMARATE [SEROquel] 300 mg PO HS #30 tab Continue amLODIPine [Norvasc] 10 mg PO DAILY #30 tab Aspirin 325 mg PO DAILY #30 tab Atorvastatin [Lipitor] 20 mg PO HS #30 tab Clopidogrel [Plavix] 75 mg PO DAILY #30 tab Discontinued OXcarbazepine [Trileptal] 300 mg PO BID 30 Days #60 tab QUEtiapine [SEROquel] 200 mg PO HS 30 Days #30 tab Famotidine [Pepcid] 20 mg PO DAILY Nicotine 14Mg/24Hr Patch [Habitrol 14Mg/24Hr Patch] 1 patch TRANSDERM DAILY Discharge Medication List Aspirin 325 mg PO DAILY #30 tab 06/22/18 [Rx] Atorvastatin [Lipitor] 20 mg PO HS #30 tab 06/22/18 [Rx] Clopidogrel [Plavix] 75 mg PO DAILY #30 tab 06/22/18 [Rx] Metoprolol Tartrate [Lopressor] 25 mg PO BID #60 tab 06/22/18 [Rx] Nicotine 14Mg/24Hr Patch [Habitrol] 1 patch TRANSDERM DAILY #10 patch 06/22/18 [ Rx] OXcarbazepine [Trileptal] 150 mg PO BID #60 tab 06/22/18 [Rx] QUEtiapine FUMARATE [SEROquel] 300 mg PO HS #30 tab 06/22/18 [Rx] amLODIPine [Norvasc] 10 mg PO DAILY #30 tab 06/22/18 [Rx] Follow up Appointment(s)/Referral(s): [facility] [Outside] - 06/27/18 9:30 am (Isaura Acosta MD [Primary Care Provider] - 1-2 days Patient Instructions/Handouts: How to Stop Smoking (DC) Activity/Diet/Wound Care/Special Instructions: Remove all weapons and firearms from your home; Refrain from street drugs and alcohol; Diet and activity as tolerated; Follow-up with your PCP in 1-2 days; Keep all scheduled follow-up appointments for continuity of care; Take all meds. as prescribed; When you are in need of prescription refills, contact either your PCP or your aftercare psychiatrist; If you worsen or have any problems, call the Crisis Line at or go to the nearest for a psychiatric evaluation.
== END 2018-06-22 12:02 | disposition home or self-care (01) | DRG 885 ==
LOC: EC 20:30 → 3MHU 06-16 05:05
PROVIDERS: ADMIT Psychiatry & Neurology Psychiatry; ATTEND Psychiatry & Neurology Psychiatry
PROC: 3E0T3BZ Introduction of Anesthetic Agent into Peripheral Nerves and Plexi, Percutaneous Approach (ICD-10-PCS; principal; 2018-06-17)
PROC: 3E0T33Z Introduction of Anti-inflammatory into Peripheral Nerves and Plexi, Percutaneous Approach (ICD-10-PCS; 2018-06-17)
DX: F31.4 Bipolar disorder, current episode depressed, severe, without psychotic features (principal); Q21.1 Atrial septal defect; R45.851 Suicidal ideations; E78.5 Hyperlipidemia, unspecified; F10.10 Alcohol abuse, uncomplicated; F14.10 Cocaine abuse, uncomplicated; F17.210 Nicotine dependence, cigarettes, uncomplicated; I10 Essential (primary) hypertension; Z86.73 Personal history of transient ischemic attack (TIA), and cerebral infarction without residual deficits; J42 Unspecified chronic bronchitis; M54.81 Occipital neuralgia; R45.850 Homicidal ideations; Z59.0 Homelessness; Z79.02 Long term (current) use of antithrombotics/antiplatelets; Z79.82 Long term (current) use of aspirin; Z79.899 Other long term (current) drug therapy; Z56.0 Unemployment, unspecified; R51 Headache; G89.29 Other chronic pain
CPT/HCPCS: 70450; 80053; 80061; 80306; 82075; 82248; 83036; 84443; 85025; 99285

== ENCOUNTER 2018-06-23 16:18 | Emergency (ER) | payer OTHER ==
--- NOTE | 2018-06-23 16:44 | ED ---
Psych HPI - General Chief Complaint: Psychiatric Symptoms Stated Complaint: Mental Health, High BP Time Seen by Provider: 06/23/18 16:42 Source: patient, RN notes reviewed, old records reviewed Mode of arrival: ambulatory - History of Present Illness Initial Comments: This is a 58-year-old male to the ER for evaluation. Patient was essay for evaluation regarding need of desire to go back to work. Patient was recently discharged from psychiatric floor yesterday. He states he doesn't work note to return to work. Patient denies any significant psychiatric illness currently denies drug or alcohol call abuse currently. MD Complaint: feels depressed, other ( states he would like to get back to work) -: days(s) Associated Psychiatric Symptoms: depression, racing thoughts History of same: Yes Quality: constant, getting worse (At night while trying to sleep) Improves With: none Worsens With: none Associated Symptoms: denies other symptoms Treatments Prior to Arrival: none If Self Harm: other (No significant complaints) - Related Data Previous Rx's Medication Instructions Recorded Aspirin 325 mg PO DAILY #30 tab 06/22/18 Atorvastatin [Lipitor] 20 mg PO HS #30 tab 06/22/18 Clopidogrel [Plavix] 75 mg PO DAILY #30 tab 06/22/18 Metoprolol Tartrate [Lopressor] 25 mg PO BID #60 tab 06/22/18 Nicotine 14Mg/24Hr Patch [Habitrol] 1 patch TRANSDERM DAILY #10 patch 06/22/18 OXcarbazepine [Trileptal] 150 mg PO BID #60 tab 06/22/18 QUEtiapine FUMARATE [SEROquel] 300 mg PO HS #30 tab 06/22/18 amLODIPine [Norvasc] 10 mg PO DAILY #30 tab 06/22/18 Allergies Allergy/AdvReac Type Severity Reaction Status Date / Time No Known Allergies Allergy Verified 06/23/18 16:38 Review of Systems ROS Statement: Those systems with pertinent positive or pertinent negative responses have been documented in the HPI. ROS Other: All systems not noted in ROS Statement are negative. Past Medical History Past Medical History: CVA/TIA, Hyperlipidemia, Hypertension, Neurologic Disorder Additional Past Medical History / Comment(s): STROKE 01/04/18, CHRONIC BRONCHITIS , Pituitary Abnormality, Migraine headaches History of Any Multi-Drug Resistant Organisms: None Reported Past Surgical History: Hernia Repair Past Anesthesia/Blood Transfusion Reactions: No Reported Reaction Past Psychological History: Anxiety, Bipolar, Depression Smoking Status: Current every day smoker Past Alcohol Use History: None Reported Past Drug Use History: Cocaine, Marijuana - Past Family History Father Family Medical History: Cancer General Exam Limitations: no limitations General appearance: alert, in no apparent distress Head exam: Present: atraumatic, normocephalic, normal inspection Eye exam: Present: normal appearance, PERRL, EOMI. Absent: scleral icterus, conjunctival injection, periorbital swelling ENT exam: Present: normal exam, mucous membranes moist Neck exam: Present: normal inspection. Absent: tenderness, meningismus, lymphadenopathy Respiratory exam: Present: normal lung sounds bilaterally. Absent: respiratory distress, wheezes, rales, rhonchi, stridor Cardiovascular Exam: Present: regular rate, normal rhythm, normal heart sounds. Absent: systolic murmur, diastolic murmur, rubs, gallop, clicks GI/Abdominal exam: Present: soft, normal bowel sounds. Absent: distended, tenderness, guarding, rebound, rigid Extremities exam: Present: normal inspection, full ROM, normal capillary refill. Absent: tenderness, pedal edema, joint swelling, calf tenderness Back exam: Present: normal inspection Neurological exam: Present: alert, oriented X3, CN II-XII intact Psychiatric exam: Present: normal affect, normal mood Skin exam: Present: warm, dry, intact, normal color. Absent: rash Course Vital Signs 06/23/18 16:34 Temperature 98.1 F Pulse Rate 78 Respiratory 18 Rate Blood Pressure 139/87 O2 Sat by Pulse 96 Oximetry - Reevaluation(s) Reevaluation #1: 06/23/18 18:48 Spoke with patient at length and medical record is reviewed Reevaluation #2: 06/23/18 18:48 Patient would like note to return to work Medical Decision Making - Medical Decision Making 58 male the ER for evaluation. Patient states he needs clearance to return to work. Patient is alert and appropriate, not homicidal or suicidal. Disposition Clinical Impression: Depression Disposition: HOME SELF-CARE Condition: Good Instructions: Depression (ED) Is patient prescribed a controlled substance at d/c from ED?: No Referrals: Isaura Gandhi MD [Primary Care Provider] - 1-2 days
[2018-06-23 19:13] VITALS: BP 169/93; PULSE 92; RESP 16; TEMP 97.1
== END 2018-06-23 19:05 | disposition home or self-care (01) ==
LOC: EC 16:18
DX: F32.9 Major depressive disorder, single episode, unspecified (principal); I10 Essential (primary) hypertension; F17.200 Nicotine dependence, unspecified, uncomplicated; Z86.73 Personal history of transient ischemic attack (TIA), and cerebral infarction without residual deficits
CPT/HCPCS: 82075; 99284

== ENCOUNTER 2018-10-30 08:21 | Day surgery (SDC) | payer OTHER ==
[2018-10-26 12:59] VITALS: BMI 32.3
[~2018-10-30 08:21] MED LIST changes: +LACTATED RINGERS 1,000 ML IV SCH; +LIDOCAINE 1% 20 ML VIAL (10MG/ML) FOR IV START INTRADERMA PRN; -LIDOCAINE 1% INJ 10MG/ML (20 ML MDV) ONE; -MIDAZOLAM 2 MG/2 ML VIAL IVP ONE; -MIDAZOLAM 2 MG/2 ML VIAL ONE; -PROPOFOL 10 MG/ML 20 ML VIAL IV ONE; -SODIUM CHLORIDE 0.9% 250 ML IV ONE; -fentaNYL (PF) 50 MCG/ML 2 ML AMP ONE
[2018-10-30 08:47] VITALS: TEMP 97.5
[2018-10-30] MEDS ORDERED: PROPOFOL 10 MG/ML 20 ML VIAL IV ONE (09:18)
[2018-10-30] MEDS ORDERED: LIDOCAINE 1% INJ 10MG/ML (20 ML MDV) ONE (09:18)
--- NOTE | 2018-10-30 09:21 | P.GSHP ---
History of Present Illness H&P Date: 10/30/18 Chief Complaint: Screening colonoscopy This is a 58-year-old male who presents today for screening colonoscopy. Patient denies a significant GI complaints. 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 CHRONIC BRONCHITIS, Pituitary Abnormality, Migraine headaches. C/O PAIN RT UPPER FLANK. History of Any Multi-Drug Resistant Organisms: None Reported Past Surgical History: Hernia Repair Additional Past Surgical History / Comment(s): HERNIA X2. TOOTH EXTRACTIONS. Past Anesthesia/Blood Transfusion Reactions: No Reported Reaction Smoking Status: Current every day smoker - Past Family History Father Family Medical History: Cancer Medications and Allergies Home Medications Medication Instructions Recorded Confirmed Type Clopidogrel [Plavix] 75 mg PO DAILY #30 tab 06/22/18 10/30/18 Rx Metoprolol Tartrate [Lopressor] 25 mg PO BID #60 tab 06/22/18 10/30/18 Rx OXcarbazepine [Trileptal] 150 mg PO BID #60 tab 06/22/18 10/30/18 Rx QUEtiapine FUMARATE [SEROquel] 300 mg PO HS #30 tab 06/22/18 10/30/18 Rx Aspirin EC [Ecotrin Low Dose] 81 mg PO DAILY 10/26/18 10/30/18 History Atorvastatin [Lipitor] 40 mg PO HS 10/26/18 10/30/18 History amLODIPine BESYLATE 10 mg PO DAILY 10/26/18 10/30/18 History Allergies Allergy/AdvReac Type Severity Reaction Status Date / Time No Known Allergies Allergy Verified 10/26/18 12:34 Surgical - Exam Vital Signs Temp Pulse Resp BP Pulse Ox 97.5 F L 59 L 16 160/89 98 10/30/18 08:45 10/30/18 08:45 10/30/18 08:45 10/30/18 08:45 10/30/18 08:45 - General well developed, well nourished, no distress - Eyes PERRL - ENT normal pinna - Neck no masses - Respiratory normal expansion - Cardiovascular Rhythm: regular - Abdomen Abdomen: soft, non tender Assessment and Plan Assessment: We will perform screening colonoscopy.
--- NOTE | 2018-10-30 09:34 | P.OP ---
Date of Procedure: 10/30/18 Preoperative Diagnosis: Screening colonoscopy Postoperative Diagnosis: Diverticulosis Procedure(s) Performed: Colonoscopy Anesthesia: MAC Surgeon: Campos Pena Pathology: none sent Condition: stable Disposition: PACU Description of Procedure: The patient's placed on the endoscopy table in the lateral position. He received sedation. Digital rectal exam was performed which revealed no abnormalities. Flexible colonoscope was then placed patient anus and passed throughout the entire colon. Ileocecal valve was visualized. The cecum, ascending and transverse colon appeared normal. In the descending; there is extensive diverticular changes. There is no evidence of diverticulitis. Scope was then brought back the rectum and this appeared normal. Scope was withdrawn for patient.
[2018-10-30 09:38] VITALS: RESP 18
[2018-10-30 09:53] VITALS: BP 121/91; PULSE 76
== END 2018-10-30 10:00 | disposition home or self-care (01) ==
LOC: ORWHC2ENDO 08:21
PROVIDERS: ATTEND Surgery
DX: Z12.11 Encounter for screening for malignant neoplasm of colon (principal); K57.30 Diverticulosis of large intestine without perforation or abscess without bleeding; I10 Essential (primary) hypertension; E78.5 Hyperlipidemia, unspecified; Z86.73 Personal history of transient ischemic attack (TIA), and cerebral infarction without residual deficits; J42 Unspecified chronic bronchitis; E23.7 Disorder of pituitary gland, unspecified; G43.909 Migraine, unspecified, not intractable, without status migrainosus; F17.210 Nicotine dependence, cigarettes, uncomplicated; F41.9 Anxiety disorder, unspecified; F31.9 Bipolar disorder, unspecified; Z79.02 Long term (current) use of antithrombotics/antiplatelets; Z79.82 Long term (current) use of aspirin; Z79.899 Other long term (current) drug therapy
CPT/HCPCS: J2001; J2704; G0121